=== PATIENT | male | born 1955 | race Caucasian/White ===

== ENCOUNTER 2017-11-09 21:34 | Inpatient (IN) | payer MEDICARE, SELFPAY ==
[2017-11-09 21:57] VITALS: BP 155/75; PULSE 83; RESP 16; TEMP 36.5; O2SAT 98; BMI 24.2
[2017-11-09 22:58] LABS: Add Manual Diff / Slide Review NO; Basophils Percent Auto 0.4 % (0-2); Eosinophils Percent Auto 0.1 % (2-4); Hematocrit 43.7 % (41-53); Hemoglobin 15.1 g/dL (13.5-17.5); Lymphocytes Percent Auto 10.9 % (25-40); Mean Corpuscular HGB Conc 34.5 % (30-36); Mean Corpuscular Hemoglobin 31.8 PG (26-34); Monocytes Percent Auto 3.5 % (3-14); Neutrophils Absolute Auto 6700 /uL (3000-5900); Neutrophils Percent Auto 85.1 % (50-75); Platelet Count 188 X10^3/uL (150-400); Red Blood Cell Count 4.75 X10^6/uL (4.5-5.9); Red Cell Distribution Width 14.1 % (11.6-14.8); White Blood Cell Count 7.9 X10^3/uL (4.5-11.0)
[2017-11-09 23:03] LABS: Alanine Aminotransferase 33 IU/L (21-72); Albumin 4.3 g/dL (3.5-5.0); Albumin Globulin Ratio 1.2 (1.0-2.8); Alkaline Phosphatase 154 U/L (38-126); Aspartate Aminotransferase 27 IU/L (17-59); Bilirubin Total 0.5 mg/dL (0.2-1.3); Calcium 9.4 mg/dL (8.4-10.2); Estimated Glomerular Filt Rate > 60.0 mL/min (>60); Globulin 3.6 g/dL (1.7-4.1); Glucose 133 mg/dL (80-110); HEMOLYSIS < 15 (0-50); Potassium 3.7 mmol/L (3.4-5.1); Sodium 138 mmol/L (137-145); Total Protein 7.9 g/dL (6.3-8.2)
--- NOTE | 2017-11-09 23:08 | ED.NAVMDI ---
HPI - Nausea/Vomiting/Diarrhea General Chief complaint: Nausea/Vomiting/Diarrhea Stated complaint: ABDOMINAL PAIN Time Seen by Provider: 11/09/17 21:41 Source: patient and family Mode of arrival: ambulatory Limitations: no limitations History of Present Illness HPI Narrative: Patient is a very poor historian but presents to the emergency department with family and a chief complaint of gradually worsening abdominal pain over the course of the day. He admits to nausea but denies vomiting. He admits to multiple episodes of loose stools over the course of the day. He denies any fever or chills. He denies recent exposure to antibiotics or travel. He denies any history of the same. MD complaint: nausea, diarrhea and abdominal pain Onset (ago): hour(s) Description of Diarrhea: watery Associated Abdominal Pain: Yes Location of pain: diffuse Severity: moderate Quality: cramping Pain Consistency: constant Relieving factors: none Exacerbating factors: none Associated symptoms: denies other symptoms Related Data Home Medications Medication Instructions Recorded Confirmed ascorbic acid (vitamin C) [Vitamin 1 g PO DAILY 11/10/17 11/10/17 C] butalbital-acetaminophen 1 tab PO Q6H PRN 11/10/17 11/10/17 carvedilol 25 mg PO BID 11/10/17 11/10/17 clindamycin phosphate [Cleocin T] 1 applic TOPICAL BID 11/10/17 11/10/17 diazepam 5 mg PO DAILY 11/10/17 11/10/17 dicyclomine 10 mg PO TID 11/10/17 11/10/17 esomeprazole magnesium [Nexium] 40 mg PO DAILY 11/10/17 11/10/17 fexofenadine-pseudoephedrine 1 tab PO QAM 11/10/17 11/10/17 [Eneida-D 24 Hour] minocycline 50 mg PO DAILY 11/10/17 11/10/17 morphine 11/10/17 morphine PO TID 11/10/17 gfyzpwhv-wbm-OB-lycopen-lutein 1 tab PO DAILY 11/10/17 11/10/17 [Centrum Silver] oxycodone [Roxicodone] 30 mg PO QID 11/10/17 11/10/17 phenobarbital 64.8 mg PO BID 11/10/17 11/10/17 promethazine 25 mg PO TID PRN 11/10/17 11/10/17 triazolam 0.5 mg PO BEDTIME PRN 11/10/17 11/10/17 venlafaxine 75 mg PO TID 11/10/17 11/10/17 vitamin B complex 1 tab PO DAILY 11/10/17 11/10/17 Allergies Allergy/AdvReac Type Severity Reaction Status Date / Time INGREDIENT: NDA - NO KNOWN Allergy Unknown Uncoded 09/24/17 12:55 DRUG ALLERGIES Review of Systems Review of Systems All systems reviewed & are unremarkable except as noted in HPI and below Constitutional Reports chills, Reports fatigue, Denies fever(s), Denies lethargy, Reports poor appetite and Denies weakness Eyes Denies change in vision, Denies eye discharge, Denies irritation and Denies loss of vision ENT Ears, Nose, Mouth, and Throat: Denies change in voice, Denies neck pain and Denies sore throat Cardiovascular Denies chest pain, Denies irregular heart rhythm, Denies lightheadedness, Denies palpitations, Denies dyspnea, Denies dyspnea on exertion and Denies orthopnea Respiratory Denies cough, Denies dyspnea, Denies dyspnea on exertion and Denies wheezing Gastrointestinal Gastrointestinal: Reports abdominal pain, Reports change in bowel habits, Reports diarrhea, Reports nausea and Denies vomiting Genitourinary Denies hematuria, Denies flank pain, Denies urinary incontinence and Denies urinary urgency Musculoskeletal Denies neck pain Integumentary/Breasts Denies pruritus, Denies erythema, Denies rash and Denies wounds Neurologic Denies confusion, Denies loss of vision and Denies weakness Psychiatric Denies anxiety, Denies confusion, Denies depression, Denies homicidal ideation and Denies suicidal ideation Endocrine Reports fatigue and Denies palpitations Hematologic/Lymphatic Denies easy bruising Allergic/Immunologic Denies wheezing PFSH Medical History Anxiety (Acute) BPH (benign prostatic hyperplasia) (Acute) Chronic pain (Acute) Depression (Acute) Insomnia (Acute) Surgical History History of ERCP (Resolved) History of cholecystectomy (Resolved) History of laparoscopic cholecystectomy (Resolved) History of tonsillectomy and adenoidectomy (Resolved) Family History Father Cancer Exam Narrative Exam Narrative: Pleasant 62-year-old male is a poor historian and obviously in pain, clutching his abdomen Initial Vital Signs Initial Vital Signs: Vital Signs Temperature 97.7 F 11/09/17 21:57 Pulse Rate 83 05/27/18 21:57 Respiratory Rate 16 11/09/17 21:57 Blood Pressure 155/75 H 11/09/17 21:57 Pulse Oximetry 98 11/09/17 21:57 Const General: cooperative, well developed and disheveled Nutritional Appearance: well nourished Orientation: alert, awake, oriented x3 and not confused [facility] Head: normocephalic and atraumatic Ears: external ears normal and TM's normal bilaterally Nose: external nose normal and No nasal discharge Face and sinus: sinuses nontender, face symmetric, no sinus tenderness and No dry mucous membranes Mouth: oral mucosae normal and moist mucous membranes Teeth and gingiva: dentition normal Throat: tonsils normal and uvula midline Neck Neck: normal visual inspection and full ROM Resp Effort & Inspection: normal respiratory effort, able to speak in complete sentences, no respiratory distress and no use of accessory muscles Auscultation: clear to auscultation bilaterally, no rales, no rhonchi and no wheezes Cardio Rate: regular rate Rhythm: regular rhythm Heart Sounds: no click, no gallops, no murmurs and no rubs Pulses: normal peripheral pulses GI Inspection: non-distended Palpation: soft, no hepatosplenomegaly, guarding, No pulsatile mass and tender Skin General: no rashes or lesions noted, No jaundice and No petechiae Neuro General: alert, oriented x3, gait normal and no focal motor deficits Speech: speech normal Extrem General: full ROM, no clubbing, cyanosis or edema, no pedal edema and no calf tenderness Course Orders Ordered: ED Orders 11/09/17 22:23 Complete Blood Count AUTO DIFF Stat Comprehensive Metabolic Panel Stat 11/09/17 22:52 Stool Culture Stat 11/09/17 23:16 XR acute abdomen series Stat 11/10/17 00:19 CT abdomen pelvis w con Stat 11/10/17 03:20 Education, smoking cessation ONGOING 11/10/17 06:00 Basic Metabolic Panel Stat Lactated Ringer's (Lactated Ringers) 1,000 mls @ 150 mls/hr IV CONT SHANEKA Morphine Sulfate (Morphine Tinter Photograph) 30 mg in 30 mls @ 0.5 mls/hr IV Q8HR SHANEKA Ketorolac Tromethamine (Toradol) 30 mg IV Q8HR PRN PRN Reason: Abdominal pain Stop: 11/15/17 02:46 Metoprolol Tartrate (Lopressor) 5 mg IV Q6H SHANEKA Naloxone HCl (Narcan) 0.2 mg IV Q2MIN PRN; Protocol PRN Reason: Opiate Reversal Discontinued Medications Sodium Chloride (Normal Saline 0.9%) 1,000 mls @ 1,000 mls/hr IV BOLUS ONE Stop: 11/09/17 23:50 Last Admin: 11/09/17 23:11 Dose: 1,000 mls/hr Morphine Sulfate (Morphine) 6 mg IV NOW ONE Stop: 11/09/17 23:38 Last Admin: 11/10/17 00:09 Dose: 6 mg Ondansetron HCl (Zofran) 4 mg IV NOW ONE Stop: 11/09/17 22:52 Last Admin: 11/09/17 23:11 Dose: 4 mg Reevaluation(s) Reevaluation #1: some improvement after Morphine Consultations Consultation #1: call to Dr. Hedrick upon receipt of CT and he will see patient at bedside Time: 02:00 Vital Signs - 8 hr 11/09/17 21:57 11/10/17 00:15 11/10/17 00:59 Temperature 97.7 F 98.8 F Pulse Rate 83 86 Respiratory Rate 16 15 Blood Pressure 155/75 H Blood Pressure [Right Arm] 129/90 H Pulse Oximetry 98 99 11/10/17 01:10 Temperature 98.8 F Pulse Rate Respiratory Rate Blood Pressure Blood Pressure [Right Arm] Pulse Oximetry MDM - Nausea/Vomiting/Diarrhea Differential Diagnosis Likely traveler's diarrhea, food poisoning, gastroenteritis and dehydration Medical Records Attestation: I reviewed the patient's medical records. Lab Data Attestation: I reviewed the patient's lab results. Result diagrams: 11/09/17 22:23 11/09/17 22:23 Lab Results 11/09/17 11/09/17 Range/Units 22:23 22:23 WBC 7.9 (4.5-11.0) X10^3/uL RBC 4.75 (4.5-5.9) X10^6/uL Hgb 15.1 (13.5-17.5) g/dL Hct 43.7 (41-53) % MCV 92.0 (80-100) fL MCH 31.8 (26-34) PG MCHC 34.5 (30-36) % RDW 14.1 (11.6-14.8) % Plt Count 188 (150-400) X10^3/uL Neut % (Auto) 85.1 H (50-75) % Lymph % (Auto) 10.9 L (25-40) % [place] % (Auto) 3.5 (3-14) % Eos % (Auto) 0.1 L (2-4) % Baso % (Auto) 0.4 (0-2) % Neut # (Auto) 6700 H (6265-2837) /uL Sodium 138 (137-145) mmol/L Potassium 3.7 (3.4-5.1) mmol/L Chloride 98.0 (98-107) mmol/L Carbon Dioxide 30.0 (22-32) mmol/L BUN 18.0 (9-20) mg/dL Creatinine 0.60 L (0.66-1.25) mg/dL Estimated GFR > 60.0 (>60) mL/min BUN/Creatinine Ratio 30.0 H (6-22) Glucose 133 H (80-110) mg/dL Calcium 9.4 (8.4-10.2) mg/dL Total Bilirubin 0.5 (0.2-1.3) mg/dL AST 27 (17-59) IU/L ALT 33 (21-72) IU/L Alkaline Phosphatase 154 H (38-126) U/L Total Protein 7.9 (6.3-8.2) g/dL Albumin 4.3 (3.5-5.0) g/dL Globulin 3.6 (1.7-4.1) g/dL Albumin/Globulin Ratio 1.2 (1.0-2.8) Imaging Data Abdominal x-ray: Attestation: I personally reviewed and interpreted this imaging study as follows: My impression: R sided SBO CT scan - abdomen: Radiologist's impression: high grade mid small bowel obstruction with question of internal hernia Discharge Plan Departure Patient Disposition: Admitted As Inpatient Clinical Impression: Partial small bowel obstruction Admit Date/Time: 11/10/17 02:24 Admit Provider: Arsalan Hedrick
[2017-11-09] MEDS: SODIUM CHLORIDE 0.9% 1,000 ML 1000 ML IV (23:11)
[2017-11-09] MEDS: ONDANSETRON 4 MG/2 ML INJ IV (23:11)
--- NOTE | 2017-11-09 23:16 | DI.RAD.S_ITS ---
PROCEDURE: XR ACUTE ABDOMEN SERIES INDICATIONS: Abdominal pain TECHNIQUE: One view chest and two views of the abdomen were acquired. COMPARISON: [facility], CR, CHEST 2 VIEW, 10/10/2007, 12:27. [facility], CT, CT ABDOMEN PELVIS W CON, 11/10/2017, 0:18. FINDINGS: Surgical changes and devices: None. Chest: Lungs are clear. Heart size is normal. No pleural effusions. No pneumoperitoneum. Abdomen: There are multiple dilated loops of small bowel in the right mid abdomen measuring up to 3 cm in diameter with associated air-fluid levels. There is a paucity of bowel gas elsewhere in the abdomen. No suspicious calcifications. Bones: No suspicious bony lesions. IMPRESSION: 1. Dilated loops of small bowel in the right mid abdomen with air-fluid levels highly suggestive of small bowel obstruction. Recommend correlation with subsequent CT. Dictated by: Mahad Roach M.D. on 11/10/2017 at 10:28 Approved by: Mahad Roach M.D. on 11/10/2017 at 10:30
[2017-11-10] VITALS (10 sets, daily range): BP systolic 129–160; BP diastolic 60–94; PULSE 77–91; RESP 15–18; TEMP 36.6–37.3; O2SAT 95–99; BMI 24.1
--- NOTE | 2017-11-10 | DI.RAD.S_ITS ---
PROCEDURE: XR ABDOMEN 1V INDICATIONS: Small bowel obstruction TECHNIQUE: One view of the abdomen acquired. COMPARISON: [facility], CT, CT ABDOMEN PELVIS W CON, 11/10/2017, 0:18. [facility], CR, XR ACUTE ABDOMEN SERIES, 11/09/2017, 23:00. FINDINGS: Surgical changes and devices: There is a new nasogastric tube extending to stomach. A few surgical clips are demonstrated within the right mid abdomen. Bowel: There is increase in multiple segments of small bowel distention in the mid to upper abdomen with a right-sided predominance. These measure up to 3.6 cm in diameter. Soft tissues: No suspicious abdominal calcifications. Bones: No suspicious bony lesions. IMPRESSION: 1. Increased in multiple dilated loops of small bowel in the upper abdomen again consistent with a small bowel obstruction as seen on recent CT. Dictated by: Mahad Roach M.D. on 11/10/2017 at 13:26 Approved by: Mahad Roach M.D. on 11/10/2017 at 13:28
[2017-11-10] MEDS: MORPHINE 10 MG/ML INJ 6 MG IV (00:09)
--- NOTE | 2017-11-10 00:19 | DI.CT.S_ITS ---
PROCEDURE: CT ABDOMEN PELVIS W CON INDICATIONS: severe abdominal pain TECHNIQUE: After the administration of oral and intravenous contrast, 5 mm thick sections acquired from the diaphragms to the symphysis. 5 mm thick coronal and sagittal reformats were performed. For radiation dose reduction, the following was used: automated exposure control, adjustment of mA and/or kV according to patient size. COMPARISON: [facility], CR, XR ACUTE ABDOMEN SERIES, 11/09/2017, 23:00. [facility], CT, CHEST ABDOMEN PELVIS WITH CONTRAST, 10/10/2007, 14:28. FINDINGS: Image quality: Excellent. ABDOMEN: Lung bases: There is mild dependent atelectasis bilaterally. Heart size is normal. There is a small pericardial effusion. Solid organs: No focal hepatic lesions identified. The gallbladder is surgically absent. There is a small amount of pneumobilia redemonstrated in the liver. Biliary system is non-dilated. Pancreas enhances normally. Spleen is normal in size and enhancement. No adrenal nodules. Kidneys demonstrate no hydronephrosis. There are small hypodensities in the kidneys which are too small to characterize but likely represent cysts. Peritoneum and bowel: There is segmental dilatation of multiple small loops of bowel in the right mid abdomen and right upper quadrant, measuring up to approximately 2.9 cm in diameter with multiple air-fluid levels. There is a transition point in the right paracentral mid abdomen on series 2 image 44. There is also a proximal transition point with mild bowel wall thickening and bowel dilatation beginning in the left paracentral mid abdomen on series 2 image 49. The proximity of the proximal and distal transition points as well swirled appearance of the mesentery and are suggestive of a closed loop obstruction possibly due to an internal hernia, or adhesion. The remainder of the small bowel proximal and distal to this segment is nondistended. The colon is also relatively nondistended. There is suggestion of mild colonic wall thickening. There is minimal intracranial free fluid as well as fat stranding within the small bowel mesentery in the right abdomen. Nodes and vessels: No retroperitoneal or mesenteric adenopathy. Aorta and inferior vena cava are normal in caliber. Miscellaneous: No ventral hernias. PELVIS: Genitourinary: There is mild concentric bladder wall thickening. Miscellaneous: No inguinal hernias or adenopathy. Bones: No suspicious bony lesions. No vertebral body compression fractures. IMPRESSION: 1. High grade segmental small bowel obstruction in the right mid abdomen a rectal quadrant with proximity of the proximal and distal transition points. Given the associated swirled appearance of the mesentery, the findings are suggestive of a closed loop obstruction possibly due to an internal hernia versus adhesions. 2. Small amount of pneumobilia redemonstrated. Findings were reported to Dr. Hedrick on 11/10/17 at 1:14 AM by [facility] radiology services. Dictated by: Mahad Roach M.D. on 11/10/2017 at 9:52 Approved by: Mahad Roach M.D. on 11/10/2017 at 10:01
--- NOTE | 2017-11-10 02:40 | PC.NURSE ---
Assisted Dr Hedrick to insert NGT to left nare at bedside. Pt tolerated well. NGT put out ~1000 ml brown secretions.
--- NOTE | 2017-11-10 03:40 | P.HP_ITS ---
History of Present Illness Chief complaint: ABDOMINAL PAIN Narrative: Derrick Boudreaux is a 62 year old male The patient is a gentleman who is a somewhat tedious historian. He had diarrhea all day Friday. He developed abdominal pain sometime yesterday that it is difficult for me to say exactly when. The pain was across his upper abdomen. He did not vomit. The pain was crampy in nature with a continuous component. He has never had pain like this before. His only prior abdominal operation appears to have been a laparoscopic cholecystectomy in 2003. Per his history it sounds like he then went for an ERCP due to common duct stones. Unfortunately I do not have those records available to me due to their age. Patient History Medical History Anxiety (Acute) BPH (benign prostatic hyperplasia) (Acute) Chronic pain (Acute) Depression (Acute) Insomnia (Acute) Surgical History History of ERCP (Resolved) History of cholecystectomy (Resolved) History of laparoscopic cholecystectomy (Resolved) History of tonsillectomy and adenoidectomy (Resolved) Family & Social History Social History: Patient is a 40-60 pack year smoker. No longer drinks due to medication he takes. Safety & Behavioral: Feels Safe in Current Yes Environment Been Physically Hurt or No Threatened By a Person Tobacco & Substance use: 40-60 pack year history smoker. Current smoker. Meds Home Medications Medication Instructions Recorded Confirmed Type ascorbic acid (vitamin C) [Vitamin 1 g PO DAILY 11/10/17 11/10/17 History C] butalbital-acetaminophen 1 tab PO Q6H PRN 11/10/17 11/10/17 History carvedilol 25 mg PO BID 11/10/17 11/10/17 History clindamycin phosphate [Cleocin T] 1 applic TOPICAL BID 11/10/17 11/10/17 History diazepam 5 mg PO DAILY 11/10/17 11/10/17 History dicyclomine 10 mg PO TID 11/10/17 11/10/17 History esomeprazole magnesium [Nexium] 40 mg PO DAILY 11/10/17 11/10/17 History fexofenadine-pseudoephedrine 1 tab PO QAM 11/10/17 11/10/17 History [Eneida-D 24 Hour] minocycline 50 mg PO DAILY 11/10/17 11/10/17 History morphine 11/10/17 History morphine PO TID 11/10/17 History yixhqfya-rvy-IS-lycopen-lutein 1 tab PO DAILY 11/10/17 11/10/17 History [Centrum Silver] oxycodone [Roxicodone] 30 mg PO QID 11/10/17 11/10/17 History phenobarbital 64.8 mg PO BID 11/10/17 11/10/17 History promethazine 25 mg PO TID PRN 11/10/17 11/10/17 History triazolam 0.5 mg PO BEDTIME PRN 11/10/17 11/10/17 History venlafaxine 75 mg PO TID 11/10/17 11/10/17 History vitamin B complex 1 tab PO DAILY 11/10/17 11/10/17 History Allergies Allergy/AdvReac Type Severity Reaction Status Date / Time INGREDIENT: NDA - NO KNOWN Allergy Unknown Uncoded 09/24/17 12:55 DRUG ALLERGIES Review of Systems Review of Systems Patient denies double vision pain in his eyes earache sore throats tooth aches or trouble swallowing except when he has a lot of phlegm. No history of asthma but has a long-time smoker he has a chronic productive cough. No prior heart problems or chest pain though he does suffer from hypertension. No known black or bloody bowel movements. He has had a colonoscopy perhaps 13 years ago. He has a lot of trouble urinating and has to sit for 5 or 10 min before he begins to pee. He is under treatment for prostatic hypertrophy. 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 It has been many years now. He is on phenobarbital and barbiturates but it is not clear to me that he takes them because of this seizure history. He was rather imprecise on that point. Denies any numbness or tingling anywhere. Does suffer from anxiety a and depression. Is on medications. He does have chronic pain and is on chronic narcotics. Does not spontaneously bleed no unusual bruising. Exam Vital Signs (past 8 hours): Vital Signs - 8 hr 3 11/09/17 21:57 11/10/17 00:15 11/10/17 00:59 Temperature 97.7 F 98.8 F Pulse Rate 83 86 Respiratory Rate 16 15 Blood Pressure 155/75 H Blood Pressure [Right Arm] 129/90 H Pulse Oximetry 98 99 3 11/10/17 01:10 Temperature 98.8 F Pulse Rate Respiratory Rate Blood Pressure Blood Pressure [Right Arm] Pulse Oximetry Pulse Oximetry 99 Oxygen Delivery Method Room Air Narrative Exam Narrative: Co operative May and in no distress at this time. He does wince when he tries to move on his stretcher. His eyes are nonicteric. Pupils equal round reactive to light. Conjunctivae are pink. Ears without lesion. Nasal septum is midline. No nasal polyps noted. Oral mucosa is dry no open lesions no splits in his lip. I feel no nodes in the neck or supraclavicular areas. His trachea is midline and mobile. Thyroid is not enlarged. There are no masses in the neck or thyroid. His lungs are clear to auscultation without rales or rhonchi with an increased expiratory phase. They are equal to percussion. Heart regular rate and rhythm without murmur or gallop. No bruit in the neck. His abdomen was initially distended and tender with palpation. After I placed an NG tube in removed approximately a L of material from the stomach it became much softer. He still had some mild tenderness in the right upper quadrant. Abdomen has active bowel sounds. No hernias appreciated of his abdominal wall. Scars from his laparoscopic cholecystectomy are noted. The patient is alert and oriented. He has a flat affect. He speaks with a somewhat jittery voice, almost to the point of stuttering. Objective Imaging CT scan - abdomen: My impression: Marked distention of his stomach. Proximal to mid small bowel dilated with distal bowel less dilated. Colon is not dilated. Patient has a thickened bladder wall. This could relate to a chronic inflammation or to chronic BPH for which he is also treated. The patient also appears to have scoliosis of the spine. Labs Result Diagrams: 11/09/17 22:23 11/09/17 22:23 Labs: Laboratory Results - last 24 hr 11/09/17 11/09/17 22:23 22:23 WBC 7.9 RBC 4.75 Hgb 15.1 Hct 43.7 MCV 92.0 MCH 31.8 MCHC 34.5 RDW 14.1 Plt Count 188 Neut % (Auto) 85.1 H Lymph % (Auto) 10.9 L [place] % (Auto) 3.5 Eos % (Auto) 0.1 L Baso % (Auto) 0.4 Neut # (Auto) 6700 H Sodium 138 Potassium 3.7 Chloride 98.0 Carbon Dioxide 30.0 BUN 18.0 Creatinine 0.60 L Estimated GFR > 60.0 BUN/Creatinine Ratio 30.0 H Glucose 133 H Calcium 9.4 Total Bilirubin 0.5 AST 27 ALT 33 Alkaline Phosphatase 154 H Total Protein 7.9 Albumin 4.3 Globulin 3.6 Albumin/Globulin Ratio 1.2 Assessment & Plan Plan: Plan: Patient is a gentleman with chronic depression and chronic pain issues, essential hypertension which is chronic, who presently appears to have a partial obstruction of his small bowel. Much of his abdominal pain has been relieved with the placement of an NG to. This will continue.Plan to provide him with narcotics to continue treatment of his chronic pain as I fear sudden withdrawal will cause more problems than giving it. Will also use Toradol for pain relief. Ultimately have medical service see this patient for management of his hypertension and psych disorders while being NPO. I have ordered metoprolol IV for now to replace his beta-alessia until he can be seen in the morning.
[2017-11-10] MEDS: LACTATED RINGERS 1,000 ML 150 ML IV ×4 (03:45→23:58)
[2017-11-10] MEDS: METOPROLOL TARTRATE 5 MG/5 ML INJ IV ×4 (04:23→22:12)
[2017-11-10] MEDS: LORazepam 2 MG/ML SYRINGE 1 MG IV ×4 (05:10→20:50)
[2017-11-10] MEDS: KETOROLAC 30 MG/ML VIAL IV ×2 (06:01→23:57)
[2017-11-10] MEDS: MORPHINE PCA 30 MG/30 ML PCA.VIAL IV ×3 (06:02→22:12)
[2017-11-10 07:45] LABS: Calcium 8.8 mg/dL (8.4-10.2); Estimated Glomerular Filt Rate > 60.0 mL/min (>60); Glucose 97 mg/dL (80-110); HEMOLYSIS < 15 (0-50); Potassium 3.8 mmol/L (3.4-5.1); Sodium 136 mmol/L (137-145)
--- NOTE | 2017-11-10 07:47 | PC.NURSE ---
Admission note: Pt admitted with a SBO. Pt has been having increased abdominal pain over the last 24 hours with watery stools. Arrived to room with an NG, placed on intermittent suction per order, had to flush the tubing twice as it gets blocked from thick output that is light brown in color with large pieces in draingage. Wallet with credit cards and cask sent to hospital safe. ivf infusing with Morphine [employer]. Pt oriented to room and call light. Bed alarm on for safety.
--- NOTE | 2017-11-10 10:22 | PM.HP.1 ---
History of Present Illness Chief complaint: ABDOMINAL PAIN Narrative: Derrick Boudreaux is a 62 year old male under care of Dr. Ronal Adams admitted with partial small-bowel obstruction. His medical history is significant for chronic pain with opioid dependency. He is also on chronic phenobarbital for years. Patient was admitted surgical service and I was asked to see him regarding management of his chronic medications with NPO status. At this time he is still having significant abdominal pain without nausea or vomiting. He also feels a little sweaty and anxious but denies hallucinations. 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 Patient History Medical History Anxiety (Acute) BPH (benign prostatic hyperplasia) (Acute) Chronic pain (Acute) Depression (Acute) Insomnia (Acute) Surgical History History of laparoscopic cholecystectomy (Acute) History of ERCP (Resolved) History of cholecystectomy (Resolved) History of laparoscopic cholecystectomy (Resolved) History of tonsillectomy and adenoidectomy (Resolved) Family & Social History Family History: Reviewed 11/10/17 by Ronal Adams MD Social History: household members none Prior Living Arrangements House Safety & Behavioral: Feels Safe in Current Yes Environment Been Physically Hurt or No Threatened By a Person Suicidal Ideation Description None Tobacco & Substance use: Smoking Status Current every day smoker Smoking packs per day 1.5 alcohol intake never Substance Use Type opiates,other Meds Home Medications Medication Instructions Recorded Confirmed Type ascorbic acid (vitamin C) [Vitamin 1 g PO DAILY 11/10/17 11/10/17 History C] butalbital-acetaminophen 1 tab PO Q6H PRN 11/10/17 11/10/17 History carvedilol 25 mg PO BID 11/10/17 11/10/17 History clindamycin phosphate [Cleocin T] 1 applic TOPICAL BID 11/10/17 11/10/17 History diazepam 5 mg PO DAILY 11/10/17 11/10/17 History dicyclomine 10 mg PO TID 11/10/17 11/10/17 History esomeprazole magnesium [Nexium] 40 mg PO DAILY 11/10/17 11/10/17 History fexofenadine-pseudoephedrine 1 tab PO QAM 11/10/17 11/10/17 History [Eneida-D 24 Hour] minocycline 50 mg PO DAILY 11/10/17 11/10/17 History morphine 30 mg PO TID 11/10/17 11/10/17 History morphine 60 mg PO TID 11/10/17 11/10/17 History kaypbpuu-swp-IO-lycopen-lutein 1 tab PO DAILY 11/10/17 11/10/17 History [Centrum Silver] oxycodone [Roxicodone] 30 mg PO QID 11/10/17 11/10/17 History phenobarbital 64.8 mg PO BID 11/10/17 11/10/17 History promethazine 25 mg PO TID PRN 11/10/17 11/10/17 History triazolam 0.5 mg PO BEDTIME PRN 11/10/17 11/10/17 History venlafaxine 75 mg PO TID 11/10/17 11/10/17 History vitamin B complex 1 tab PO DAILY 11/10/17 11/10/17 History Allergies Allergy/AdvReac Type Severity Reaction Status Date / Time INGREDIENT: NDA - NO KNOWN Allergy Unknown Uncoded 09/24/17 12:55 DRUG ALLERGIES Review of Systems Review of Systems All systems reviewed & are unremarkable except as noted in HPI and below Exam Vital Signs (past 8 hours): Vital Signs - 8 hr 11/10/17 03:46 11/10/17 09:19 Temperature 98.9 F 98.6 F Pulse Rate 83 79 Respiratory Rate 17 18 Blood Pressure 160/72 H 129/88 H Pulse Oximetry 98 96 Pulse Oximetry 96 Oxygen Delivery Method Room Air Narrative Exam Narrative: GENERAL: Alert mildly anxious male cooperative with examination HEAD: Atraumatic. Normocephalic. EYES: Pupils equal, round and reactive. Extraocular motions intact. No scleral icterus. No injection or drainage. OROPHARYNX: Unremarkable NECK: Trachea midline. No JVD or lymphadenopathy. CARDIOVASCULAR: Regular rate and rhythm without murmurs, gallops, or rubs. RESPIRATORY: Clear to auscultation bilaterally. GASTROINTESTINAL: Minimally distended, absent bowel sounds, not rigid, no significant tenderness EXTREMITIES: No edema. NEUROLOGICAL: Alert, slightly anxious, well oriented, speech is intact, normal bilateral upper and lower extremity strength SKIN: warm, dry, no rash Objective Labs Result Diagrams: 11/09/17 22:23 11/10/17 07:04 Labs: Laboratory Results - last 24 hr 11/09/17 11/09/17 11/10/17 22:23 22:23 07:04 WBC 7.9 RBC 4.75 Hgb 15.1 Hct 43.7 MCV 92.0 MCH 31.8 MCHC 34.5 RDW 14.1 Plt Count 188 Neut % (Auto) 85.1 H Lymph % (Auto) 10.9 L Pre[place] % (Auto) 3.5 Eos % (Auto) 0.1 L Baso % (Auto) 0.4 Neut # (Auto) 6700 H Sodium 138 136 L Potassium 3.7 3.8 Chloride 98.0 98.0 Carbon Dioxide 30.0 30.0 BUN 18.0 12.0 Creatinine 0.60 L 0.50 L Estimated GFR > 60.0 > 60.0 BUN/Creatinine Ratio 30.0 H 24.0 H Glucose 133 H 97 Calcium 9.4 8.8 Total Bilirubin 0.5 AST 27 ALT 33 Alkaline Phosphatase 154 H Total Protein 7.9 Albumin 4.3 Globulin 3.6 Albumin/Globulin Ratio 1.2 Assessment & Plan Plan: Plan: 1. Partial small bowel obstruction: Patient appears medically stable being managed by surgery. He is on complete bowel rest, NG to suction, IV fluids. 2. Chronic pain with opioid dependency: Patient appears in mild withdrawal. He is on equivalent 390 mg oral morphine daily dose per home routine. Recommend increasing morphine drip to 1 milligram/hour which would still be well below his equivalent oral dosing. 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 Continue lorazepam 1 mg every 4 hr as needed, noting patient is on phenobarbital and nighttime triazolam per home routine. 3. Hypertension: Blood pressure currently normal. Continue metoprolol 5 mg IV every 6 hr as currently ordered. He is on carvedilol 25 mg twice daily per home routine. Quality VTE Deep Vein Thrombosis/Pulmonary Embolism Present on Admission: No
--- NOTE | 2017-11-10 10:33 | P.HP_ITS ---
History of Present Illness Chief complaint: ABDOMINAL PAIN Narrative: Derrick Boudreaux is a 62 year old male under care of Dr. Ronal Adams admitted with partial small-bowel obstruction. His medical history is significant for chronic pain with opioid dependency. He is also on chronic phenobarbital for years. Patient was admitted surgical service and I was asked to see him regarding management of his chronic medications with NPO status. At this time he is still having significant abdominal pain without nausea or vomiting. He also feels a little sweaty and anxious but denies hallucinations. 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 Patient History Medical History Anxiety (Acute) BPH (benign prostatic hyperplasia) (Acute) Chronic pain (Acute) Depression (Acute) Insomnia (Acute) Surgical History History of laparoscopic cholecystectomy (Acute) History of ERCP (Resolved) History of cholecystectomy (Resolved) History of laparoscopic cholecystectomy (Resolved) History of tonsillectomy and adenoidectomy (Resolved) Family & Social History Family History: Reviewed 11/10/17 by Ronal Adams MD Social History: household members none Prior Living Arrangements House Safety & Behavioral: Feels Safe in Current Yes Environment Been Physically Hurt or No Threatened By a Person Suicidal Ideation Description None Tobacco & Substance use: Smoking Status Current every day smoker Smoking packs per day 1.5 alcohol intake never Substance Use Type opiates,other Meds Home Medications Medication Instructions Recorded Confirmed Type ascorbic acid (vitamin C) [Vitamin 1 g PO DAILY 11/10/17 11/10/17 History C] butalbital-acetaminophen 1 tab PO Q6H PRN 11/10/17 11/10/17 History carvedilol 25 mg PO BID 11/10/17 11/10/17 History clindamycin phosphate [Cleocin T] 1 applic TOPICAL BID 11/10/17 11/10/17 History diazepam 5 mg PO DAILY 11/10/17 11/10/17 History dicyclomine 10 mg PO TID 11/10/17 11/10/17 History esomeprazole magnesium [Nexium] 40 mg PO DAILY 11/10/17 11/10/17 History fexofenadine-pseudoephedrine 1 tab PO QAM 11/10/17 11/10/17 History [Eneida-D 24 Hour] minocycline 50 mg PO DAILY 11/10/17 11/10/17 History morphine 30 mg PO TID 11/10/17 11/10/17 History morphine 60 mg PO TID 11/10/17 11/10/17 History ynbddmhn-lga-HD-lycopen-lutein 1 tab PO DAILY 11/10/17 11/10/17 History [Centrum Silver] oxycodone [Roxicodone] 30 mg PO QID 11/10/17 11/10/17 History phenobarbital 64.8 mg PO BID 11/10/17 11/10/17 History promethazine 25 mg PO TID PRN 11/10/17 11/10/17 History triazolam 0.5 mg PO BEDTIME PRN 11/10/17 11/10/17 History venlafaxine 75 mg PO TID 11/10/17 11/10/17 History vitamin B complex 1 tab PO DAILY 11/10/17 11/10/17 History Allergies Allergy/AdvReac Type Severity Reaction Status Date / Time INGREDIENT: NDA - NO KNOWN Allergy Unknown Uncoded 09/24/17 12:55 DRUG ALLERGIES Review of Systems Review of Systems All systems reviewed & are unremarkable except as noted in HPI and below Exam Vital Signs (past 8 hours): Vital Signs - 8 hr 3 11/10/17 03:46 11/10/17 09:19 Temperature 98.9 F 98.6 F Pulse Rate 83 79 Respiratory Rate 17 18 Blood Pressure 160/72 H 129/88 H Pulse Oximetry 98 96 Pulse Oximetry 96 Oxygen Delivery Method Room Air Narrative Exam Narrative: GENERAL: Alert mildly anxious male cooperative with examination HEAD: Atraumatic. Normocephalic. EYES: Pupils equal, round and reactive. Extraocular motions intact. No scleral icterus. No injection or drainage. OROPHARYNX: Unremarkable NECK: Trachea midline. No JVD or lymphadenopathy. CARDIOVASCULAR: Regular rate and rhythm without murmurs, gallops, or rubs. RESPIRATORY: Clear to auscultation bilaterally. GASTROINTESTINAL: Minimally distended, absent bowel sounds, not rigid, no significant tenderness EXTREMITIES: No edema. NEUROLOGICAL: Alert, slightly anxious, well oriented, speech is intact, normal bilateral upper and lower extremity strength SKIN: warm, dry, no rash Objective Labs Result Diagrams: 11/09/17 22:23 11/10/17 07:04 Labs: Laboratory Results - last 24 hr 11/09/17 11/09/17 11/10/17 22:23 22:23 07:04 WBC 7.9 RBC 4.75 Hgb 15.1 Hct 43.7 MCV 92.0 MCH 31.8 MCHC 34.5 RDW 14.1 Plt Count 188 Neut % (Auto) 85.1 H Lymph % (Auto) 10.9 L Stephenson % (Auto) 3.5 Eos % (Auto) 0.1 L Baso % (Auto) 0.4 Neut # (Auto) 6700 H Sodium 138 136 L Potassium 3.7 3.8 Chloride 98.0 98.0 Carbon Dioxide 30.0 30.0 BUN 18.0 12.0 Creatinine 0.60 L 0.50 L Estimated GFR > 60.0 > 60.0 BUN/Creatinine Ratio 30.0 H 24.0 H Glucose 133 H 97 Calcium 9.4 8.8 Total Bilirubin 0.5 AST 27 ALT 33 Alkaline Phosphatase 154 H Total Protein 7.9 Albumin 4.3 Globulin 3.6 Albumin/Globulin Ratio 1.2 Assessment & Plan Plan: Plan: 1. Partial small bowel obstruction: Patient appears medically stable being managed by surgery. He is on complete bowel rest, NG to suction, IV fluids. 2. Chronic pain with opioid dependency: Patient appears in mild withdrawal. He is on equivalent 390 mg oral morphine daily dose per home routine. Recommend increasing morphine drip to 1 milligram/hour which would still be well below his equivalent oral dosing. 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 Continue lorazepam 1 mg every 4 hr as needed, noting patient is on phenobarbital and nighttime triazolam per home routine. 3. Hypertension: Blood pressure currently normal. Continue metoprolol 5 mg IV every 6 hr as currently ordered. He is on carvedilol 25 mg twice daily per home routine. Quality VTE Deep Vein Thrombosis/Pulmonary Embolism Present on Admission: No
--- NOTE | 2017-11-10 12:30 | PM.PN.1 ---
Subjective Date Patient Seen: 11/10/17 Time Patient Seen: 12:30 Interval history: Denies pain currently. She reports that the Dilaudid DOCTOR OF NURSE ANESTHESIA is controlling his pain. Does not feel nauseated. Denies flatus since admission. Exam Vital Signs (past 8 hours): Vital Signs - 8 hr 11/10/17 09:19 11/10/17 10:18 Temperature 98.6 F Pulse Rate 79 84 Respiratory Rate 18 Blood Pressure 129/88 H 133/90 H Pulse Oximetry 96 Pulse Oximetry 96 Oxygen Delivery Method Room Air Narrative Exam Narrative: Abdomen is soft, bowel sounds are active. Nontender to palpation. No peritoneal signs. No hernias appreciated. Objective Labs Result Diagrams: 11/09/17 22:23 11/10/17 07:04 Labs: Laboratory Results - last 24 hr 11/09/17 11/09/17 11/10/17 22:23 22:23 07:04 WBC 7.9 RBC 4.75 Hgb 15.1 Hct 43.7 MCV 92.0 MCH 31.8 MCHC 34.5 RDW 14.1 Plt Count 188 Neut % (Auto) 85.1 H Lymph % (Auto) 10.9 L [place] % (Auto) 3.5 Eos % (Auto) 0.1 L Baso % (Auto) 0.4 Neut # (Auto) 6700 H Sodium 138 136 L Potassium 3.7 3.8 Chloride 98.0 98.0 Carbon Dioxide 30.0 30.0 BUN 18.0 12.0 Creatinine 0.60 L 0.50 L Estimated GFR > 60.0 > 60.0 BUN/Creatinine Ratio 30.0 H 24.0 H Glucose 133 H 97 Calcium 9.4 8.8 Total Bilirubin 0.5 AST 27 ALT 33 Alkaline Phosphatase 154 H Total Protein 7.9 Albumin 4.3 Globulin 3.6 Albumin/Globulin Ratio 1.2 Assessment & Plan Plan: Plan: Partial small bowel obstruction in the setting of a gentleman with multiple other medical problems. Continue NG tube suction. This certainly seems to have worked wonders for his discomfort. We will try a suppository today to stimulate bowel function. Repeat films in the morning. Labs are reassuring. Quality VTE Deep Vein Thrombosis/Pulmonary Embolism Present on Admission: No
--- NOTE | 2017-11-10 12:37 | CM.DANOTE ---
DCP/Assessment: Reviewed chart. Patient is a 62yr old male admitted to [facility] with SBO on 11-10-17. Primary payor is 1)Medicare. PCP is Dr. Adams. Met with patient explained CM/SW role. Patient resting comfortably in bed with NG tube in place. Spoke with RN and she reports patient currently undergoing bowel rest. Patient reports that he resides alone in [place]. Patient's NOK is his sister/Shaneka # [phone]. Patient reports that he is active at baseline. Pt.'s Mother/Sandhya resides at [facility] in [facility]. Pt. reports that he regularly visits her. At this time d/c date and needs unknown. Patient aware and agreeable for CM team to continue to follow. Name/number placed on white board. P: Anticipate home when SBO resolves. If SBO does not resolve anticipate surgery. Follow closely. RAMSES Kaufman
[2017-11-10] MEDS: NICOTINE 21 MG PATCH TOP (12:48)
[2017-11-10] MEDS: BISACODYL 10 MG SUPP PR (14:08)
--- NOTE | 2017-11-11 | DI.RAD.S_ITS ---
PROCEDURE: XR ABDOMEN 3V INDICATIONS: 62 year-old male with small bowel obstruction, improving clinically. TECHNIQUE: One view chest and two views of the abdomen were acquired. COMPARISON: [facility], CR, XR ABDOMEN 1V, 11/10/2017, 12:38. [facility], CR, XR ACUTE ABDOMEN SERIES, 11/09/2017, 23:00. FINDINGS: Surgical changes and devices: Esophagogastric tube is again noted, with tip looped in the gastric fundus. Cholecystectomy clips are present. Chest: Lungs are clear. Heart size is normal. No pleural effusions. No pneumoperitoneum. Abdomen: Bowel gas pattern is now normal. No suspicious calcifications. Visualized solid organ contours appear normal. Bones: No suspicious bony lesions. There is mild lumbar spine levoscoliosis and lower lumbar spine disc and facet joint degeneration. IMPRESSION: Interval radiographic resolution of small bowel obstruction. Dictated by: Kris Starr M.D. on 11/11/2017 at 8:52 Approved by: Kris Starr M.D. on 11/11/2017 at 8:54
[2017-11-11] MEDS: LORazepam 2 MG/ML SYRINGE 1 MG IV ×5 (01:10→19:27)
--- NOTE | 2017-11-11 02:25 | PC.NURSE ---
Assumed care of pt from outgoing shift at 2300 5-28. Pt awake, complaining of pain. uss call light. given toradol per AUG. pt stated he didn't really know if it helped or not. NG tube flushed. PT tolerating well. green/brownish and chunks draining. Pt asked if he could roll to side. given permission. PT left side lying. pt asked for ativan, given per AUG. discussed plan of care with pt, questions answered. pt wondering how long he will need to stay etc, and about NG tube and when that will come out. Pt denied further needs at this time. Pt bed in lowest, locked position. belongings and call light within reach. will continue to monitor pt for safety.
[2017-11-11 03:10] VITALS: BP 145/95; PULSE 76; RESP 20; TEMP 37.3; O2SAT 96
[2017-11-11] MEDS: METOPROLOL TARTRATE 5 MG/5 ML INJ IV ×2 (03:15→09:36)
[2017-11-11] MEDS: MORPHINE PCA 30 MG/30 ML PCA.VIAL IV ×2 (05:13→13:42)
[2017-11-11] MEDS: LACTATED RINGERS 1,000 ML 150 ML IV ×3 (06:47→21:57)
[2017-11-11 07:50] VITALS: BP 161/91; PULSE 92; RESP 16; TEMP 37.1; O2SAT 96
--- NOTE | 2017-11-11 07:56 | PC.NURSE ---
bowel movements happened on evening shift, not charted. this gag writer charted per what evening shift RN told this rn.
[2017-11-11] MEDS: NICOTINE 21 MG PATCH TOP (09:36)
[2017-11-11 12:00] VITALS: BP 153/96; PULSE 88; RESP 16; TEMP 36.8; O2SAT 94
[2017-11-11 15:35] VITALS: BP 141/91; PULSE 87; RESP 16; TEMP 36.9; O2SAT 98
--- NOTE | 2017-11-11 16:13 | PM.PN.1 ---
Subjective Date Patient Seen: 11/11/17 Interval history: Patient had bowel movements last night after suppository. Abdominal x-ray this a.m. shows resolution of small-bowel obstruction and he was started on clear liquids by surgery Service. He has been moderately anxious off his usual medication routine and mild to moderately hypertensive. Exam Vital Signs (past 8 hours): Vital Signs - 8 hr 11/11/17 12:00 Temperature 98.3 F Pulse Rate 88 Respiratory Rate 16 Blood Pressure 153/96 H Pulse Oximetry 94 Pulse Oximetry 94 Oxygen Delivery Method Room Air Oxygen Flow Rate 0 Narrative Exam Narrative: GENERAL: Patient is in no acute distress HEENT: Head normocephalic, atraumatic. Mucous membranes moist. CHEST: Clear to auscultation bilaterally. CARDIAC: Regular rate and rhythm. ABDOMEN: Hyperactive bowel sounds, nondistended, soft, nontender EXTREMITIES: no edema. NEUROLOGICAL: Alert, pleasant but mildly anxious SKIN: Warm, dry, no petechiae, no rash Objective Labs Result Diagrams: 11/09/17 22:23 11/10/17 07:04 Assessment & Plan Plan: Plan: 1. Partial small bowel obstruction: Obstruction appears resolved. Clear liquid diet per surgery service. 2. Chronic pain with opioid dependency: Patient appears in mild withdrawal. He is on equivalent 390 mg oral morphine daily dose per home routine. 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 Start patient on his oral narcotic routine. Also restart his routine of phenobarbital and butalbital. 3. Hypertension: Moderately hypertensive. Restart carvedilol. Stop IV metoprolol. Quality VTE Deep Vein Thrombosis/Pulmonary Embolism Present on Admission: No
--- NOTE | 2017-11-11 16:17 | P.PN_ITS ---
Subjective Date Patient Seen: 11/11/17 Interval history: Patient had bowel movements last night after suppository. Abdominal x-ray this a.m. shows resolution of small-bowel obstruction and he was started on clear liquids by surgery Service. He has been moderately anxious off his usual medication routine and mild to moderately hypertensive. Exam Vital Signs (past 8 hours): Vital Signs - 8 hr 3 11/11/17 12:00 Temperature 98.3 F Pulse Rate 88 Respiratory Rate 16 Blood Pressure 153/96 H Pulse Oximetry 94 Pulse Oximetry 94 Oxygen Delivery Method Room Air Oxygen Flow Rate 0 Narrative Exam Narrative: GENERAL: Patient is in no acute distress HEENT: Head normocephalic, atraumatic. Mucous membranes moist. CHEST: Clear to auscultation bilaterally. CARDIAC: Regular rate and rhythm. ABDOMEN: Hyperactive bowel sounds, nondistended, soft, nontender EXTREMITIES: no edema. NEUROLOGICAL: Alert, pleasant but mildly anxious SKIN: Warm, dry, no petechiae, no rash Objective Labs Result Diagrams: 11/09/17 22:23 11/10/17 07:04 Assessment & Plan Plan: Plan: 1. Partial small bowel obstruction: Obstruction appears resolved. Clear liquid diet per surgery service. 2. Chronic pain with opioid dependency: Patient appears in mild withdrawal. He is on equivalent 390 mg oral morphine daily dose per home routine. 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 Start patient on his oral narcotic routine. Also restart his routine of phenobarbital and butalbital. 3. Hypertension: Moderately hypertensive. Restart carvedilol. Stop IV metoprolol. Quality VTE Deep Vein Thrombosis/Pulmonary Embolism Present on Admission: No
[2017-11-11 20:13] VITALS: BP 152/97; PULSE 88; RESP 16; TEMP 36.9; O2SAT 98
[2017-11-11] MEDS: OXYCODONE IR 10 MG TABLET 30 MG PO (21:05)
[2017-11-11] MEDS: PANTOPRAZOLE 40 MG TABLET PO (21:12)
[2017-11-11] MEDS: PHENobarbital 32.4 MG TABLET 64.8 MG PO (21:13)
[2017-11-11] MEDS: CARVEDILOL 25 MG TABLET PO (21:14)
[2017-11-11] MEDS: BUTALBITAL ACETAMINOPHEN 1 EACH PO (21:20)
[2017-11-11] MEDS: VENLAFAXINE 37.5 MG TABLET 75 MG PO (21:59)
--- NOTE | 2017-11-11 22:50 | PC.NURSE ---
Nurse note: At beginning of shift patient asking can't I go home now? Asked several times. At that point he was still NPO with no new orders. I explained we need to reintroduce clear liquids and make sure pain/nausea does not return. Adamant about leaving. I called [facility], traveling secretary said Dr Hedrick was in training, transfered me to Dr Barnes who said he would come & see patient. A while later I observed new orders in computer to advance to clear liquid dinner, and to DC AUTOMOTIVE SERVICE ADVISOR and change him to PO pain medications and home meds. Because of how meds were timed, I waited until 1999 to DC AUTOMOTIVE SERVICE ADVISOR. Oxycodone given as scheduled, patient refused his Morphine ER dose, at first saying he only wanted one -- want more later. I explained protocol and he then refused entire dose. He asked for his butalbatol which is labeled as pt's own in AUG. I asked patient if he had his own bottle here. He told me get my jeans out of the closet. From his marco a pocket he removed a pill bottle labeled Oxycodone, bottle plum full of many different medications. I called Jami in Rx to ask if she was able to identify, she asked me to send to pharmacy. I sent all pills and bottle to pharmacy. Patient observably irritated that I needed to take his pills from room, even after I reassured him multiple times he would get them back at time of discharge. Since that time patient has been increasingly restless, asking for Lorazepam multiple times although told he can only have 4 hours. He has gotten OOB 3 times with bed alarming, once I found him at doorwaywith IV stretched, he stumbled on his way back to the bed. I instructed him to call and have staff present before he attempts to get OOB. I told him it would be good for him to get out and walk in the hallway to stimulate bowels. SCD's removed after he got OOB the 3rd time and left off due to increased fall risk. Bed alarm is active and CERAMICS ARTIST aware of patient's behavior changes.
--- NOTE | 2017-11-12 01:16 | PC.NURSE ---
Pt. sleeping soundly, will assess when he wakes up. Will monitor.
[2017-11-12 02:15] VITALS: BP 140/77; PULSE 80; RESP 20; TEMP 37; O2SAT 97
[2017-11-12] MEDS: LORazepam 2 MG/ML SYRINGE 1 MG IV ×2 (02:29→07:02)
[2017-11-12] MEDS: LACTATED RINGERS 1,000 ML 150 ML IV (04:56)
[2017-11-12 05:04] VITALS: BP 131/78; PULSE 80; RESP 18; TEMP 36.9; O2SAT 99
[2017-11-12 08:18] VITALS: BP 146/81; PULSE 83; RESP 18; TEMP 36.7; O2SAT 96
[2017-11-12] MEDS: CARVEDILOL 25 MG TABLET PO (08:28)
[2017-11-12] MEDS: NICOTINE 21 MG PATCH TOP (08:29)
[2017-11-12] MEDS: MORPHINE ER 30 MG TABLET 60 MG PO (08:29)
[2017-11-12] MEDS: VENLAFAXINE 37.5 MG TABLET 75 MG PO (08:30)
[2017-11-12] MEDS: PHENobarbital 32.4 MG TABLET 64.8 MG PO (08:30)
[2017-11-12] MEDS: PANTOPRAZOLE 40 MG TABLET PO (08:30)
[2017-11-12] MEDS: OXYCODONE IR 10 MG TABLET 30 MG PO (08:31)
--- NOTE | 2017-11-12 12:10 | P.DS_ITS ---
History of Present Illness Chief complaint: ABDOMINAL PAIN Narrative: Derrick Boudreaux is a 62 year old male He developed upper abdominal pain with nausea no vomiting and abdominal distention the day prior to admission. Two days prior he had diarrhea. Movement increased his pain. Discharge Providers Date of admission: 11/10/17 02:24 Primary care physician: Ronal Adams MD Discharge provider: Arsalan Hedrick MD Summary Discharge Diagnosis: 1 small bowel obstruction resolved at time of discharge 2 anxiety disorder chronic active 3 depression chronic active 4 chronic pain disorder on high doses of narcotics. 5. Essential hypertension chronic 6 history of laparoscopic cholecystectomy in the distant past 7 chronic seizure disorder controlled with medications 8. Chronic cough productive secondary to long-time cigarette use. (probable COPD) Hospital Course: The patient was admitted and an NG tube was placed. There was a large amount of fluid initially evacuated. NG remained an additional day. His abdominal distention improved. He was not tender after the 1st night at 0 0 after the NG was placed. His white blood cell count was normal. When his abdomen became scaphoid he was passing gas his NG tube was removed. He ultimately was discharged on a regular diet to follow up with his primary care doctor. He was discharged on his pre-admission medication. Status at Discharge Functional status at discharge: independent ambulation Overall status at discharge: patient is back to baseline Time Spent with Patient Less than 30 minutes Time spent discussing smoking cessation with patient: 3 to 10 minutes Exam Vital Signs (past 8 hours): Vital Signs - 8 hr 3 11/12/17 05:04 11/12/17 08:18 Temperature 98.5 F 98.1 F Pulse Rate 80 83 Respiratory Rate 18 18 Blood Pressure 131/78 H 146/81 H Pulse Oximetry 99 96 Pulse Oximetry 96 Oxygen Delivery Method Room Air Oxygen Flow Rate 0 Narrative Exam Narrative: Lungs are clear to auscultation. No rales or rhonchi. Heart regular rate and rhythm without murmur gallop. Abdomen is scaphoid soft nontender there are no masses or distention whatsoever. No ventral hernias appreciated. Patient is alert and oriented x3. Speech rate and content he is a bit worried but otherwise appropriate. Objective Labs Result Diagrams: 11/09/17 22:23 11/10/17 07:04 Discharge Plan Discharge Plan Patient Disposition: Home, Self-Care Discharge comment: You had a bowel obstruction that resolved on its own. Provider Discharge Instructions Diet: Diet as Tolerated Diet comment: Avoid a large amount of vegetables at 1 time when eating Activity: No restriction Wound Care Report to your healthcare provider any signs of infection, such as:: increased pain Discharge Data Primary Care Provider: Ronal Adams Attending Provider: Arsalan Hedrick Admit Date/Time: 11/10/17 02:24 Quality VTE Deep Vein Thrombosis/Pulmonary Embolism Present on Admission: No
--- NOTE | 2017-11-12 13:13 | PC.NURSE ---
pt discharged and wheelchair transport to personal vehicle. Personal belongings retrieved from safe and home medications retrieved from pharmacy. Patient stated he had no questions and sister in room to assist patient home.
== END 2017-11-12 13:15 | disposition home or self-care (01) | DRG 389 ==
LOC: ED 11-10 01:28 → AC 11-10 02:26
PROVIDERS: Admitting Provider Specialist; Emergency Provider Emergency Medicine; PCP Internal Medicine; Visit Provider Specialist
DX: K56.600 Partial intestinal obstruction, unspecified as to cause (principal); F11.20 Opioid dependence, uncomplicated; F32.9 Major depressive disorder, single episode, unspecified; I10 Essential (primary) hypertension; G89.4 Chronic pain syndrome; F17.210 Nicotine dependence, cigarettes, uncomplicated; N40.0 Benign prostatic hyperplasia without lower urinary tract symptoms; F41.9 Anxiety disorder, unspecified; G47.00 Insomnia, unspecified; G40.909 Epilepsy, unspecified, not intractable, without status epilepticus; J41.0 Simple chronic bronchitis
CPT/HCPCS: 36415; 36591; 74018; 74021; 74022; 74177; 80048; 80053; 82962; 85025; 87045; 87177; 96361; 96374; 96375; 99283; 99285; 99406; J1885; J2060; J2270; J2405; Q9967

== ENCOUNTER → 2019-05-03 16:00 | Outpatient (CLI) | payer MEDICARE, SELFPAY ==
[2017-11-10 04:04] VITALS: BMI 24.1
--- NOTE | 2019-05-03 | DI.US.S_ITS ---
PROCEDURE: US ABDOMEN LIMITED INDICATIONS: EPIGASTRIC LUMP TECHNIQUE: Real-time focused scanning was performed of the abdomen, with image documentation. COMPARISON: None. FINDINGS: Within the ventral soft tissues at the midline 2 cm below the sternum in an area of prior scarring from gallbladder surgery multiple years prior there is a non-contrast non-reducible apparent hernia which does not demonstrate tenderness during sonographic palpation or change in position with Valsalva. IMPRESSION: Nontender non-mobile ventral 2.2 x 0.9 cm fixed hernia in area of gallbladder surgery scar reported by the patient be chronically present. Adhesed omental hernia would be suspected as the likely cause. Dictated by: Derrick Benítez M.D. on 05/04/2019 at 8:43 Approved by: Derrick Benítez M.D. on 05/04/2019 at 8:45
== END ==
PROVIDERS: Family Provider Internal Medicine; PCP Internal Medicine; Visit Provider Student in an Organized Health Care Education/Training Program
DX: R19.06 Epigastric swelling, mass or lump (principal); K43.2 Incisional hernia without obstruction or gangrene
CPT/HCPCS: 76705

== ENCOUNTER → 2019-08-06 14:00 | Outpatient (CLI) | payer MEDICARE, SELFPAY ==
[2017-11-10 04:04] VITALS: BMI 24.1
[2019-08-06 15:01] LABS: Add Manual Diff / Slide Review NO; Basophils Absolute Auto 100 /uL (0-100); Basophils Percent Auto 1.3 % (0-2); Eosinophils Absolute Auto 500 /uL (0-450); Eosinophils Percent Auto 7.8 % (2-4); Hematocrit 43.8 % (41-53); Hemoglobin 14.8 g/dL (13.5-17.5); Lymphocytes Absolute Auto 1900 /uL (1100-4500); Lymphocytes Percent Auto 27.6 % (25-40); Mean Corpuscular HGB Conc 33.9 % (30-36); Mean Corpuscular Hemoglobin 31.6 PG (26-34); Mean Corpuscular Volume 93.3 fL (80-100); Monocytes Absolute Auto 800 /uL (0-900); Monocytes Percent Auto 11.5 % (3-14); Neutrophils Absolute Auto 3500 /uL (1500-7000); Neutrophils Percent Auto 51.8 % (50-75); Platelet Count 213 X10^3/uL (150-400); Red Blood Cell Count 4.69 X10^6/uL (4.5-5.9); Red Cell Distribution Width 14.6 % (11.6-14.8); White Blood Cell Count 6.7 X10^3/uL (4.5-11.0)
[2019-08-06 15:23] LABS: Alanine Aminotransferase 34 IU/L (<50); Albumin 4.3 g/dL (3.5-5.0); Albumin Globulin Ratio 1.1 (1.0-2.8); Alkaline Phosphatase 146 U/L (38-126); Aspartate Aminotransferase 40 IU/L (17-59); BUN Creatinine Ratio 27.5 (6-22); Bilirubin Total 0.3 mg/dL (0.2-1.3); Blood Urea Nitrogen 22 mg/dL (9-20); Calcium 9.2 mg/dL (8.4-10.2); Carbon Dioxide 30 mmol/L (22-32); Chloride 101 mmol/L (98-107); Estimated Glomerular Filt Rate > 60.0 mL/min (>60); Globulin 3.8 g/dL (1.7-4.1); Glucose 66 mg/dL (80-110); HEMOLYSIS 17 (0-50); Potassium 4.2 mmol/L (3.4-5.1); Sodium 140 mmol/L (137-145); Total Protein 8.1 g/dL (6.3-8.2)
== END ==
PROVIDERS: Family Provider Internal Medicine; PCP Internal Medicine; Referring Provider Internal Medicine; Visit Provider Internal Medicine
DX: G44.221 Chronic tension-type headache, intractable (principal); M15.9 Polyosteoarthritis, unspecified; G89.4 Chronic pain syndrome
CPT/HCPCS: 36415; 80053; 85025

== ENCOUNTER → 2020-10-04 10:50 | Outpatient (CLI) | payer MEDICARE, SELFPAY ==
[2017-11-10 04:04] VITALS: BMI 24.1
[2020-10-04 12:13] LABS: Alanine Aminotransferase 24 IU/L (<50); Albumin 4.1 g/dL (3.5-5.0); Albumin Globulin Ratio 1.1 (1.0-2.8); Alkaline Phosphatase 139 U/L (38-126); Aspartate Aminotransferase 33 IU/L (17-59); BUN Creatinine Ratio 22.2 (6-22); Bilirubin Total 0.2 mg/dL (0.2-1.3); Blood Urea Nitrogen 16 mg/dL (9-20); Calcium 9.4 mg/dL (8.4-10.2); Carbon Dioxide 30 mmol/L (22-32); Chloride 101 mmol/L (98-107); Cholesterol 202 mg/dL (140-199); Estimated Glomerular Filt Rate > 60.0 mL/min (>60); Globulin 3.6 g/dL (1.7-4.1); Glucose 97 mg/dL (80-110); HDL Cholesterol 57 mg/dL (40-60); HEMOLYSIS < 15 (0-50); LDL Cholesterol Calculated 123 mg/dL (<100); Potassium 4.2 mmol/L (3.4-5.1); Sodium 138 mmol/L (137-145); Total Protein 7.7 g/dL (6.3-8.2); Triglycerides 111 mg/dL (35-150)
== END ==
PROVIDERS: Family Provider Internal Medicine; PCP Internal Medicine; Referring Provider Internal Medicine; Visit Provider Internal Medicine
DX: I10 Essential (primary) hypertension (principal); E78.5 Hyperlipidemia, unspecified
CPT/HCPCS: 36415; 80053; 80061

== ENCOUNTER → 2020-10-18 11:48 | Outpatient (CLI) | payer MEDICARE, SELFPAY ==
[2017-11-10 04:04] VITALS: BMI 24.1
[2020-10-18 13:00] LABS: COVID19 -Nasal RAPID Negative (Negative)
== END ==
PROVIDERS: Family Provider Internal Medicine; PCP Internal Medicine; Visit Provider Student in an Organized Health Care Education/Training Program
DX: Z01.812 Encounter for preprocedural laboratory examination (principal); Z20.822 Contact with and (suspected) exposure to COVID-19
CPT/HCPCS: 87635

== ENCOUNTER → 2020-10-18 13:33 | Outpatient (CLI) | payer MEDICARE, SELFPAY ==
[2017-11-10 04:04] VITALS: BMI 24.1
--- NOTE | 2020-10-18 | DI.NM.S_ITS ---
PROCEDURE: NM SHWETHA PERF SPECT REST & STR Rest and exercise myocardial perfusion SPECT with gated imaging and ejection fraction RADIOPHARMACEUTICAL: 27.0 mCi Tc-99m sestamibi IV at rest and 25.8 mCi Tc-99m sestamibi IV at peak exercise. A two day-protocol was performed. INDICATIONS: Chest pain, unspecified TECHNIQUE: Radiopharmaceutical was injected at peak stress test, and also at rest. SPECT images were obtained. SPECT myocardial perfusion images were displayed in short axis, horizontal long axis, and vertical long axis views. Gated images were reviewed using [employer] software. COMPARISON: None. CARDIAC STRESS: A standard [employer] treadmill exercise tolerance test was performed by the patient under the supervision of an attending staff. The patient exercised for 5 minutes and 23 seconds; functional aerobic impairment (LUI) is +28%. Hemodynamic data: There is normal blood pressure and heart rate response to exercise stress. Patient achieved 104% of maximum predicted heart rate at peak exercise. Symptoms: Patient denied chest pain during exercise. EKG: No diagnostic EKG changes of ischemia; occasional PVCs. FINDINGS: Raw data: There is good myocardial labeling by radiotracer. No significant motion artifacts. Yynb-yu-mlnkh ratio is 0.25 (normal is less than 0.38 for sestamibi tracer, and less than 0.50 for thallium tracer). Left ventricle function: Gated images demonstrate normal left ventricle wall thickening. No segmental wall motion abnormality. No transient ischemic dilation; TID is 0.73 (normal less than 1.3). The left ventricle resting end-diastolic volume is 96 mL. Left ventricle stress ejection fraction is 81%; normal values are above 45%. Myocardial perfusion: There is normal distribution of activity in the left and right ventricular myocardium. No fixed or reversible perfusion defects. IMPRESSION: low risk, normal treadmill nuclear stress test 1) No perfusion evidence of ischemia or infarction. 2) Normal left ventricular size, wall motion, and systolic function (EF post stress 81%). 3) No ECG evidence of ischemia. 4) No angina during the study. 5) Reduced exercise tolerance (7.0 METs, LUI +28%). Target heart rate achieved. Appropriate BP response to exercise. 6) No prior nuclear stress test available for comparison. Dictated by: Ryan Ibarra MD on 10/20/2020 at 9:30 Approved by: Ryan Ibarra MD on 10/20/2020 at 9:34
== END ==
PROVIDERS: Family Provider Internal Medicine; PCP Internal Medicine; Referring Provider Internal Medicine; Visit Provider Internal Medicine
DX: Z01.812 Encounter for preprocedural laboratory examination (principal); Z20.822 Contact with and (suspected) exposure to COVID-19; R07.9 Chest pain, unspecified
CPT/HCPCS: 78452; 87635; 93017; C9803; A9502

== ENCOUNTER → 2022-04-22 13:25 | Outpatient (CLI) | payer MEDICARE, SELFPAY ==
[2017-11-10 04:04] VITALS: BMI 24.1
--- NOTE | 2022-04-22 13:28 | DI.US.S_ITS ---
PROCEDURE: US ABD AORTA ANEURYSM SCREEN INDICATIONS: AAA SCREENING TECHNIQUE: Real time scanning was performed of the aorta and iliac arteries, with image documentation. COMPARISON: None. FINDINGS: Aorta: Proximal aortic diameter measures 2.4 cm. Mid-aorta measures 1.7 cm. Distal aortic diameter is 1.5 cm. Iliac arteries: Right common iliac artery measures 0.9 cm. Left common iliac artery measures 1.1 cm. A few scattered atherosclerotic plaques are seen scattered in abdominal aorta. IMPRESSION: No evidence of abdominal aortic aneurysm. A few scattered atherosclerotic plaques are seen in abdominal aorta. Dictated by: Suresh Peters M.D. on 04/22/2022 at 14:12 Approved by: Suresh Peters M.D. on 04/22/2022 at 14:13
== END ==
PROVIDERS: Family Provider Internal Medicine; Referring Provider Internal Medicine; Visit Provider Internal Medicine
DX: Z13.6 Encounter for screening for cardiovascular disorders (principal); I70.0 Atherosclerosis of aorta
CPT/HCPCS: 76706

== ENCOUNTER → 2022-12-20 12:35 | Outpatient (CLI) | payer MEDICARE, SELFPAY ==
[2017-11-10 04:04] VITALS: BMI 24.1
--- NOTE | 2022-12-20 | DI.MRI.S_ITS ---
PROCEDURE: MR THORACIC SPINE WO CON INDICATIONS: Pain in thoracic spine TECHNIQUE: Noncontrast sagittal T1 spine echo and T2 fast spin echo, sagittal STIR, and T2 fast spin echo through the thoracic spine. COMPARISON: None. FINDINGS: Image quality: Excellent. Alignment and Curvature: Kyphosis of the upper thoracic spine. There is anterior height loss T5 and T6 which appears chronic with no acute edema. Bone Marrow: Marrow is of normal overall signal. No acute vertebral body compression fractures. Discs: Diffuse disc bulges at multiple levels. No significant central canal stenosis. No significant foraminal stenosis. The T7-T8 disc space has endplate edema consistent with type 1 degenerative changes. Spinal Cord: Visualized spinal cord is normal in size and signal. Paraspinous Soft Tissues: No paravertebral masses. Miscellaneous: On axial images, central canal and foramina appear widely patent at all scanned levels. IMPRESSION: 1. No acute traumatic abnormality. 2. Degenerative endplate changes at T7-8. 3. Anterior height loss of T5 and T6 with kyphosis. No edema to suggest an acute fracture. Dictated by: Jimmy Trujillo M.D. on 12/20/2022 at 17:07 Approved by: Jimmy Trujillo M.D. on 12/20/2022 at 17:15
== END ==
PROVIDERS: Family Provider Internal Medicine; Referring Provider Acupuncturist; Visit Provider Acupuncturist
DX: M51.34 Other intervertebral disc degeneration, thoracic region (principal); M47.814 Spondylosis without myelopathy or radiculopathy, thoracic region; M40.204 Unspecified kyphosis, thoracic region
CPT/HCPCS: 72146

== ENCOUNTER → 2023-01-07 10:33 | Outpatient (CLI) | payer MEDICARE, SELFPAY ==
[2017-11-10 04:04] VITALS: BMI 24.1
--- NOTE | 2023-01-07 | DI.RAD.S_ITS ---
PROCEDURE: [place] WRIST INJECTION MR/CT RT INDICATIONS: Fracture of unspecified carpal bone, right wrist, sequela COMPARISON: [facility], CT, CT WRIST RIGHT W CON, 01/07/2023, 11:08. [facility], CR, XR WRIST 3+ VIEWS RIGHT, 12/27/2022, 14:21. TECHNIQUE: After informed consent had been obtained, the wrist was examined fluoroscopically, and a site chosen for injection of the radiocarpal compartment from a dorsal approach. Skin was prepped and draped in a sterile fashion and 1% lidocaine infiltrated from the skin down to the articular surface. A hypodermic needle was then introduced into the articular space and a modest amount of contrast medium was instilled confirming intra-articular needle tip placement. This was followed by approximately 4 mL of a dilute gadolinium solution. Needle was removed and dressing was applied. The patient experienced no complications throughout the procedure and left the fluoroscopic suite in no apparent distress. FINDINGS: A single fluoroscopic spot image demonstrates intra-articular location to injected iodinated contrast. Old distal radial metaphyseal fracture. There is a surgical screw in the radial metaphysis. IMPRESSION: Successful fluoroscopic-guided administration of dilute Gadolinium solution for wrist MR arthrogram. Dictated by: Bakari Eason M.D. on 01/07/2023 at 12:48 Approved by: Bakari Eason M.D. on 01/07/2023 at 12:49
--- NOTE | 2023-01-07 | DI.CT.S_ITS ---
PROCEDURE: CT WRIST RIGHT W CON INDICATIONS: Fracture of unspecified carpal bone, right wrist, sequela TECHNIQUE: Noncontrast 1 mm oblique axial sections acquired through the carpal bones, with coronal and sagittal reformats. COMPARISON: [facility], CR, XR WRIST 3+ VIEWS RIGHT, 12/27/2022, 14:21. [facility] [place], , [place] WRIST INJECTION MR/CT RT, 01/07/2023, 10:47. FINDINGS: Image quality: Excellent. Bones: Postsurgical changes are seen from distal radial fracture fixation with a single metallic screw. The metallic hardware is intact. There is solid osseous bridging across the fracture line. Residual deformity is seen with volar tilting and mild irregularity of the distal radial articular surface. A chronic ununited ulnar styloid tip fracture is also noted. Soft tissues: Cartilage irregularity and partial thickness cartilage loss are seen at the radiocarpal articulation. There is full-thickness tearing of the membranous portion and the volar band of the scapholunate ligament with contrast extravasation from the radiocarpal compartment to the midcarpal compartment. The dorsal band of the scapholunate ligament remains intact without widening of the scapholunate interval. There also appears to be degenerative perforation of the central membranous portion of the lunotriquetral ligament without disruption of dorsal or volar fibers. No full-thickness triangular fibrocartilage ligament tear is seen. No extravasation of radiocarpal contrast material into the distal radioulnar joint. The ligaments and tendons are not well evaluated with CT. However, no definite tendon tearing or tendon tract min is seen. The musculature surrounding the wrist is normal in bulk. IMPRESSION: 1. Postsurgical changes from distal radial fracture fixation with mild residual deformity. Chronic ununited ulnar styloid fracture. 2. Full-thickness tearing of the volar band and central membranous portion of the scapholunate ligament. The dorsal band of the ligament remains intact without widening of the scapholunate interval. No scaphoid fracture is seen. 3. Degenerative perforation of the central membranous portion of the lunotriquetral ligament without disruption of the dorsal or volar bands. 4. No full-thickness tear of the triangular fibrocartilage complex. Approved by: Michael Ibarra M.D. on 01/07/2023 at 13:30
== END ==
PROVIDERS: Family Provider Internal Medicine; Referring Provider Orthopaedic Surgery; Visit Provider Orthopaedic Surgery
DX: S52.611K Displaced fracture of right ulna styloid process, subsequent encounter for closed fracture with nonunion (principal); S52.501P Unspecified fracture of the lower end of right radius, subsequent encounter for closed fracture with malunion; S63.591A Other specified sprain of right wrist, initial encounter; X58.XXXD Exposure to other specified factors, subsequent encounter
CPT/HCPCS: 20605; 73200; 73201; 77002

== ENCOUNTER → 2023-12-03 13:55 | Outpatient (CLI) | payer MEDICARE, SELFPAY ==
[2017-11-10 04:04] VITALS: BMI 24.1
--- NOTE | 2023-12-03 | DI.US.S_ITS ---
PROCEDURE: US CAROTID DOPPLER BI INDICATIONS: NICOTINE DEPENDANCY,HYPERLIPIDEMIA TECHNIQUE: Color and pulse Doppler interrogation was performed of both carotid systems, with image documentation and velocity measurements. COMPARISON: None. FINDINGS: Stenosis calculations are based on SRU (Society of Radiologists in Ultrasound) criteria. The flow velocities and the arterial waveforms are normal within both carotid arterial systems. No significant atherosclerotic change is seen. The estimated degree of internal carotid artery stenosis is less than 50%. Antegrade flow is confirmed within both vertebral arteries. IMPRESSION: No hemodynamically significant stenosis is seen. Dictated by: Bry Groves M.D. on 12/03/2023 at 13:55 Approved by: Bry Groves M.D. on 12/03/2023 at 13:57
--- NOTE | 2023-12-03 | DI.CT.S_ITS ---
PROCEDURE: CT LUNG LOW DOSE SCREENING INDICATIONS: NICOTINE DEPENDANCY,HYPERLIPIDEMIA TECHNIQUE: Noncontrast 2.0-2.5 mm thick sections acquired from the pulmonary apices to the posterior costophrenic angles. 7 mm thick axial MIP, and 5 mm coronal and sagittal reformats were then acquired. For radiation dose reduction, the following was used: automated exposure control, adjustment of mA and/or kV according to patient size. COMPARISON: [facility], CT, CT ABDOMEN PELVIS W CON, 11/10/2017, 0:18. FINDINGS: Image quality: Diagnostic. Lower Neck: No enlarged lymph nodes. Thyroid: No thyroid nodules which require sonographic follow up, per consensus guidelines. Axillae: No enlarged lymph nodes. Chest Wall: Unremarkable. Bones: Chronic appearing mild anterior wedging of T5. Mild degenerative changes of the spine. Lungs and Pleura: No pneumothorax or pleural effusions. Mild upper lobe predominant centrilobular emphysematous changes. Mild linear atelectasis versus scarring at the lung bases. No consolidation or suspicious nodules. Right lower lobe triangular perifissural nodule measuring 6 mm (3/181). Heart: Heart size is normal. Severe coronary artery calcifications pericardial effusion. Thoracic Vessels: The aorta and pulmonary arteries demonstrate normal size. . Trace atherosclerotic vascular calcifications. Mediastinum and Pratima: No enlarged lymph nodes. Esophagus: No wall thickening. No hiatal hernia. Upper Abdomen: Pneumobilia is present. Otherwise, the upper abdomen is unremarkable. IMPRESSION: Right lower lobe triangular perifissural nodule measuring 6 mm, favored to represent a benign intrapulmonary lymph node. Otherwise, no pulmonary nodules are identified. Pneumobilia is present, which is seen on prior CT abdomen pelvis 11/10/2017, however it is more pronounced on today's exam. Recommend clinical correlation. LUNG-RADS to; continued annual screening, if eligible. Clinically Significant Non-pulmonary Findings: Severe coronary artery calcifications. Dictated by: Nasim Beltran M.D. on 12/03/2023 at 14:42 Approved by: Nasim Beltran M.D. on 12/03/2023 at 14:48
== END ==
PROVIDERS: Family Provider Internal Medicine; PCP Family Medicine; Referring Provider Student in an Organized Health Care Education/Training Program; Visit Provider Student in an Organized Health Care Education/Training Program
DX: Z87.891 Personal history of nicotine dependence (principal); Z13.6 Encounter for screening for cardiovascular disorders; R91.1 Solitary pulmonary nodule; I25.10 Atherosclerotic heart disease of native coronary artery without angina pectoris; E78.5 Hyperlipidemia, unspecified
CPT/HCPCS: 71271; 93880